=== PATIENT | female | born 1980 | race African-American/Black ===

== ENCOUNTER 2017-10-07 02:25 | Emergency (ER) | payer MEDICARE, MEDICAID ==
[~2017-10-07] VITALS: Ht 160 cm; Wt 54.4 kg
[2017-10-07 03:06] LABS: Basophils # (auto) 0 uL; Basophils % (auto) 0.5 % (0.0-2.0); Eosinophils # (auto) 0.2 uL; Hemoglobin 11.3 g/dL (12.2-16.2); Mean Corpuscular Volume 78.8 fL (80.0-100.0); Monocytes # (auto) 0.8 uL; Red Cell Distribution Width 14.3 % (11.8-14.3); White Blood Cell 8.1 10^3/uL (4.4-10.8)
[2017-10-07 03:08] LABS: Eosinophils % (auto) 2.9 % (0.0-7.0); Hematocrit 34.7 % (36.0-46.0); Lymphocytes # (auto) 1.1 uL; Lymphocytes % (auto) 13.3 % (10.0-50.0); Mean Corpuscular Hemoglobin 25.7 pg (28.0-32.0); Mean Corpuscular Hgb Conc. 32.6 g/dL (32.0-36.0); Monocytes % (auto) 9.8 % (0.0-12.0); Neutrophils % (auto) 73.5 % (37.0-80.0); Red Blood Cells 4.41 10^6/uL (4.0-5.20)
[2017-10-07 03:09] LABS: Platelet Count (auto) 448 10^3/uL (140-450)
[2017-10-07 03:17] LABS: INR 0.97 (0.9-1.15); Partial Thromboplastin Time 34.6 sec (22.64-33.71); Prothrombin Time 10.6 sec (9.37-12.3)
[2017-10-07 03:20] LABS: Alanine Aminotransferase 13 U/L (13-56); Albumin 3.5 g/dL (3.4-5.0); Anion Gap 11 (5-15); Aspartate Aminotransferase 13 U/L (15-37); BUN/Creatinine Ratio 9.2; Blood Urea Nitrogen 7 mg/dL (7-18); Calcium 9.3 mg/dL (8.5-10.1); Carbon Dioxide 22 mmol/L (21-32); Chloride 103 mmol/L (98-107); GFR African American 110 mL/min; GFR Non-African American 91 mL/min; Glucose 116 mg/dL (74-106); Potassium 3.8 mmol/L (3.5-5.1); Sodium 136 mmol/L (136-145)
[2017-10-07 03:21] LABS: Urine Bacteria NONE SEEN /hpf (None Seen); Urine Blood Negative /uL (Negative); Urine Mucus FEW (None Seen); Urine Specific Gravity 1.032 (1.001-1.035); Urine WBC 9 /hpf (0 - 5)
[2017-10-07 03:22] LABS: Alcohol, Urine < 3.0 mg/dL (0-5); Amphetamine Screen, Urine NEGATIVE (NEGATIVE); Barbiturate Scree,Urine NEGATIVE (NEGATIVE); Benzodiazephine Screen, Urine NEGATIVE (NEGATIVE); Cannabinoid Screen, Urine POSITIVE (NEGATIVE); Cocaine Screen, Urine NEGATIVE (NEGATIVE); Opiate Scree,Urine NEGATIVE (NEGATIVE); Phencyclidine Screen, Urine NEGATIVE (NEGATIVE)
[2017-10-07 03:25] LABS: Alkaline Phosphatase 64 U/L (45-117); Bilirubin, Total 0.4 mg/dL (0.2-1.0); Total Protein 8.7 g/dL (6.4-8.2)
[2017-10-07 03:59] LABS: Urine Pregnacy Test Negative (Negative)
[2017-10-07 07:13] VITALS: BP 107/62
[2017-10-07] MEDS ORDERED: KETOROLAC TROMETH 30 MG/ML 1ML VIAL IM ONE (07:30)
== END 2017-10-07 07:53 | disposition home or self-care (01) ==
LOC: ER 02:28
DX: R07.89 Other chest pain (principal); D64.9 Anemia, unspecified; Z91.041 Radiographic dye allergy status
CPT/HCPCS: 36415; 71046; 80053; 80307; 81001; 81025; 84484; 85025; 85610; 85730; 93005; 96372; 99285; J1885

== ENCOUNTER 2024-07-04 08:53 | Emergency (ER) | payer MEDICARE, MEDICAID ==
[~2024-07-04] VITALS: Ht 160 cm; Wt 68.3 kg
[2024-07-04 09:49] VITALS: BP 126/72; PULSE 100; RESP 20; TEMP 97.8; O2SAT 98
--- NOTE | 2024-07-04 09:56 | ED.PDOC ---
Musculoskeletal HPI Comments A 44 YEAR OLD FEMALE PRESENTS TO THE ED WITH COMPLAINT OF RIGHT SHOULDER PAIN AND RIGHT RIB PAIN STATUS POST FALL. PATIENT STATES SHE ACCIDENTALLY SLIPPED AND FELL WHILE SHE WAS AT HOME DEPOT 1 WEEK AGO AND LANDED ON THE RIGHT SIDE OF HER BODY. PATIENT REPORTS SHE IS NOW EXPERIENCING RIGHT SHOULDER PAIN AND RIGHT POSTERIOR RIB PAIN THAT IS WORSE WITH MOVEMENT. PATIENT DENIES HEAD INJURY, NECK INJURY, LOC, FEVER, CHILLS, SHORTNESS OF BREATH, CHEST PAIN, ABDOMINAL PAIN, NAUSEA, VOMITING, HEADACHE, OR OTHER COMPLAINTS. NO OTHER SYMPTOMS OR MODIFYING FACTORS AT THIS TIME. PATIENT IS ALERT, ORIENTED X 4, AND HAS STEADY GAIT. Chief Complaint: Fall Injury Time Seen by MD: 09:21 Primary Care Provider: ELMER Reviewed Notes: Nurses Notes, Medications, Allergies Allergies: Coded Allergies: Iodine (Verified Allergy, Unknown, 10/07/17) Home Meds Active Scripts Methocarbamol (Methocarbamol) 500 Mg Tab, 500 MG PO BID, #20 TAB Prov:ALEA CANDELARIA 07/04/24 Ibuprofen (Ibuprofen) 600 Mg Tab, 1 TAB PO TID, #30 TAB Prov:ALEA CANDELARIA 07/04/24 Information Source: Patient Mode of Arrival: Ambulatory Location: Right Extremity Location: Shoulder, Other (POSTERIOR RIB) Timing: Days Prehospital treatment: None Severity: Moderate Able to Move Extremity: Yes Bear Weight: Fully Pain: Moderate Mechanism: Blunt Trauma Circumstances: Fall Onset of Symptoms: After Trauma Symptoms: Pain DVT Risk Factors: NONE Last Tetanus: Unknown Associated signs and symptoms: Shoulder pain, Other (RIGHT MIDDLE POSTERIOR RIBS PAIN ) Past Medical History PAST MEDICAL HISTORY: Denies Surgical History: Denies all surgeries 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: 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 Family History Family History: Reviewed,noncontributory to illness Social History Smoker: Non-Smoker Alcohol: Denies ETOH Use Drugs: Denies Drug Use Lives In: Home Constitutional: denies: chills, diaphoresis, fatigue, fever, malaise, sweats, weakness, others EENTM: denies: blurred vision, double vision, ear bleeding, ear discharge, ear drainage, ear pain, ear ringing, eye pain, eye redness, hearing loss, mouth pain, mouth swelling, nasal discharge, nose bleeding, nose congestion, nose pain, photophobia, tearing, throat pain, throat swelling, voice changes, others Respiratory: denies: cough, hemoptysis, orthopnea, SOB at rest, shortness of breath, SOB with excertion, stridor, wheezing, others Cardiovascular: denies: chest pain, dizzy spells, diaphoresis, Dyspnea on exertion, edema, irregular heart beat, left arm pain, lightheadedness, palpitations, PND, syncope, others Gastrointestinal: denies: abdomen distended, abdominal pain, blood streaked bowels, constipated, diarrhea, dysphagia, difficulty swallowing, hematemesis, melena, nausea, poor appetite, poor fluid intake, rectal bleeding, rectal pain, vomiting, others Genitourinary: denies: abnormal vagina bleeding, burning, dyspareunia, dysuria, flank pain, frequency, hematuria, incontinence, pain, , vagina discharge, urgency, others Neurological: denies: dizziness, fainting, headache, left sided numbness, left sided weakness, numbness, paresthesia, pre-existing deficit, right sided numbn ess, right sided weakness, seizure, speech problems, tingling, tremors, weakness, others Musculoskeletal: reports: joint pain, muscle pain (RIGHT POSTERIOR MIDDLE RIBS PAIN ), others (RIGHT SHOULDER PAIN, RIGHT POSTERIOR RIB PAIN); denies: back pain, gout, joint swelling, muscle stiffness, neck pain Integumetry: denies: bruises, change in color, change in hair/nails, dryness, laceration, lesions, lumps, rash, wounds, others Allergic/Immunocompromised: denies: Difficulty Healing, Frequent Infections, Hives, Itching, others Hematologic/Lymphatic: denies: anemia, blood clots, easy bleeding, easy bruising, swollen glands, others Endocrine: denies: excessive hunger, excessive sweating, excessive thirst, excessive urination, flushing, intolerance to cold, intolerance to heat, unexplained weight gain, unexplained weight loss, others Psychiatric: denies: anxiety, bipolar disorder, depression, hopeless, panic disorder, schizophrenia, sleepless, suicidal, others All Other Systems: Reviewed and Negative Physical Exam General Appearance: No Apparent Distress, Normal HEENT: Normal ENT Inspection, PERRL/EOMI, Pharynx Normal, TMs Normal Neck: Full Range of Motion, Non-Tender, Normal, Normal Inspection Respiratory: Chest Non-Tender, Lungs Clear, No Accessory Muscle Use, No Respiratory Distress, Normal Breath Sounds Cardiovascular: No Edema, No JVD, No Murmur, No Gallop, Normal Peripheral Pulses, Regular Rate/Rhythm Breast Exam: Deferred Gastrointestinal: No Organomegaly, Non Tender, No Pulsatile Mass, Normal Bowel Sounds, Soft Genitalia: Deferred Pelvic: Deferred Rectal: Deferred Extremities: No calf tenderness, Normal capillary refill, Normal range of motion, No pedal edema, Tender (RIGHT SHOULDER, NO BONY TENDERNESS, SWELLING AND DEFORMITY. ) Musculoskeletal : Location: Right Apperance: Tenderness (RIGHT MIDDLE POSTERIOR RIBS, NO BONY TENDERNESS, SWELLING AND DEFORMITY. ) Neurologic: Alert, housekeeper manager II-XII nml as Tested, No Motor Deficits, Normal Affect, Normal Mood, No Sensory Deficits Cerebellar Function: Normal Reflexes: Normal Skin: Dry, Normal Color, Warm Peripheral Pulses: 2+ carotid (R), 2+ carotid (L) Lymphatic: No Adenopathy Was a procedure done? Was a procedure done?: No Differential Diagnosis EXT Differential Diagnosis: Fracture, Sprain, Dislocation, Contusion, Strain X-Ray, Labs, Meds, VS Vital Signs Date Time Temp Pulse Resp B/P (MAP) Pulse Ox O2 Delivery O2 Flow Rate FiO2 07/04/24 09:49 100 20 98 Room Air 07/04/24 09:49 97.8 100 20 126/72 (90) 98 97.8 07/04/24 09:10 97.8 100 20 126/72 (90) 98 Current Medications Medications (Trade) Dose Ordered Sig/Carol Route Start Time Stop Time Status Last Admin Ketorolac Tromethamine (Toradol Injection) 60 mg ONCE ONCE IM 07/04/24 10:00 07/04/24 10:01 DC 07/04/24 10:02 EXAM: XY R SHOULDER 2+ VIEW XRAY CLINICAL INDICATION: FALL X 10 DAYS AGO TECHNIQUE: XY R SHOULDER 2+ VIEW XRAY Comparison: None FINDINGS/IMPRESSION: There is no evidence of acute fracture or dislocation. The visualized joint space is well maintained. The alignment is anatomical. There is no radiopaque foreign body. ATED BY: CHEPE WAHL MD DICTATED DATE/TIME: 07/04/24 1018 SIGNED BY: CHEPE WAHL MD SIGNED DATE/TIME: 07/04/24 1018 CC: EXAMINATION: XY R RIB XRAY INDICATION: FALL COMPARISON: None TECHNIQUE: Frontal chest and right rib radiographs. FINDINGS: There is no evidence of a right rib fracture. The lungs are clear. There is no pleural effusion or pneumothorax. IMPRESSION: 1. No radiographic evidence for acute right rib fracture. HS:Y ATED BY: TOBIAS SEPULVEDA MD DICTATED DATE/TIME: 07/04/24 1026 SIGNED BY: TOBIAS SEPULVEDA MD SIGNED DATE/TIME: 07/04/24 1026 CC: X-Ray, Labs, Meds, VS Comment EXTERNAL MEDICAL RECORDS REVIEWED: [NONE] INDEPENDENT HISTORIANS: [NONE] SOCIAL DETERMINANTS OF HEALTH: [NONE] LABS ORDERED: NONE REVIEWED AND INTERPRETED RESULTS: NONE IMAGING ORDERED: XR SHOULDER RT, XR RIBS RT TREATMENTS ORDERED: TORADOL 60 MG IM PROCEDURES PERFORMED: NONE CRITICAL CARE TIME: NONE I HAVE DISCUSSED THE PATIENT WITH THE ATTENDING PHYSICIAN DR. PIERCE AND HE AGREES WITH THE PATIENT'S PLAN OF CARE AND DISPOSITION. BASED ON HISTORY OF PRESENT ILLNESS, AND PHYSICAL EXAM, PATIENT WILL BE DISCHARGED HOME. SHARED DECISION MAKING: PATIENT INSTRUCTED TO FOLLOW UP WITH PRIMARY CARE PROVIDER IN 1-2 DAYS FOR RE-EVALUATION OF SYMPTOMS. PATIENT VERBALIZES UNDERSTANDING TO RETURN TO ED FOR NEW OR WORSENING SYMPTOMS OR IF FOLLOW UP WITH PCP CANNOT BE OBTAINED. PATIENT FEELS COMFORTABLE GOING HOME AT THIS TIME. ALL QUESTIONS ADDRESSED AT TIME OF DISCHARGE. Images Reviewed?: Images reviewed and evaluated by me Time of 1ST Reevaluation: 10:35 Reevaluation 1ST: Improved Patient Education/Counseling: Diagnosis, Treatment, Need For Follow Up Family Education/Counseling: Diagnosis, Treatment, Need For Follow Up Medical Screening: No EMC Exist At This Time Departure 1 Departure Time of Disposition: 10:35 Impression: Primary Impression: Intercostal muscle strain Qualified Codes: S29.011A - Strain of muscle and tendon of front wall of t horax, initial encounter Additional Impressions: Muscle strain of right shoulder Qualified Codes: S46.911A - Strain of unspecified muscle, fascia and tendon at shoulder and upper arm level, right arm, initial encounter Status post fall Disposition: 01 HOME / SELF CARE / HOMELESS Condition: Stable Additional Instructions: FOLLOW-UP WITH PCP IN 1 TO 2 DAYS. TAKE MEDICATIONS PRESCRIBED. RETURN TO ED FOR ANY NEW OR WORSENING SYMPTOMS. e-Prescriptions Methocarbamol (Methocarbamol) 500 Mg Tab 500 MG PO BID, #20 TAB Prov: ALEA CANDELARIA 07/04/24 Ibuprofen (Ibuprofen) 600 Mg Tab 1 TAB PO TID, #30 TAB Prov: ALEA CANDELARIA 07/04/24 Discharged With: Self Critical Care Note Critical Care Time?: No Stability Stability form required: No I personally scribed for ALEA CANDELARIA ([email or web address]) on 07/04/24 at 09:56. Electronically submitted by Raz La ([employer]). I personally scribed for ALEA CANDELARIA ([email or web address]) on 07/04/24 at 10:32. Electronically submitted by Raz La ([employer]). I personally scribed for ALEA CANDELARIA ([email or web address]) on 07/04/24 at 10:33. Electronically submitted by Raz La ([employer]). ALEA CANDELARIA Jul 04, 2024 09:56
[2024-07-04] MEDS: KETOROLAC TROMETH 60MG/2ML VIAL IM ONE (10:02)
--- NOTE | 2024-07-04 10:20 | DVH ---
EXAM: XY R SHOULDER 2+ VIEW XRAY CLINICAL INDICATION: FALL X 10 DAYS AGO TECHNIQUE: XY R SHOULDER 2+ VIEW XRAY Comparison: None FINDINGS/IMPRESSION: There is no evidence of acute fracture or dislocation. The visualized joint space is well maintained. The alignment is anatomical. There is no radiopaque foreign body.
--- NOTE | 2024-07-04 10:29 | DVH ---
EXAMINATION: XY R RIB XRAY INDICATION: FALL COMPARISON: None TECHNIQUE: Frontal chest and right rib radiographs. FINDINGS: There is no evidence of a right rib fracture. The lungs are clear. There is no pleural effusion or pn eumothorax. IMPRESSION: 1. No radiographic evidence for acute right rib fracture. HS:Y
[2024-07-04] MEDS ORDERED: IBUP-1454 PO (10:34)
[2024-07-04] MEDS ORDERED: METH-1181 PO (10:34)
== END 2024-07-04 10:42 | disposition home or self-care (01) ==
LOC: ER 08:53
DX: S29.011A Strain of muscle and tendon of front wall of thorax, initial encounter (principal); S46.911A Strain of unspecified muscle, fascia and tendon at shoulder and upper arm level, right arm, initial encounter; Z91.040 Latex allergy status; W01.0XXA Fall on same level from slipping, tripping and stumbling without subsequent striking against object, initial encounter; Y92.009 Unspecified place in unspecified non-institutional (private) residence as the place of occurrence of the external cause; Y93.89 Activity, other specified; Y99.8 Other external cause status
CPT/HCPCS: 71101; 73030; 96372; 99284; J1885